=== PATIENT | female | born 1965 | race Caucasian/White ===

== ENCOUNTER 2021-05-16 11:33 | Emergency (ER) | payer OTHER ==
--- OUTSIDE RECORDS SUMMARY | 2021-05-16 11:37 | XMS REPORT | Continuity of Care Document ---
:1965 Author Organization [facility] t Address [address] [place] [address] Care Team Providers Name Role Phone Tiff HARDING Primary Care Physician Unavailable SYSTEM, NOT IN Attending Clinician Unavailable Heidi CORNEJO Attending Clinician Unavailable Janey Velasquez Attending Clinician Tiff HARDING Attending Clinician Unavailable Silvino WOODY Attending Clinician Unavailable Barbra GARCIA Attending Clinician SOHA Attending Clinician Unavailable SAMRA Attending Clinician Unavailable Payers Payer Name Policy Type Policy Effective Date Expiration Date Sour ce Number HUMANA CHOICE [id number] 2020 MEDICARE PPO 00:00:00 HUMANA [id number] 2018 [place] MEDICAREHUMANA 00:00:00 [facility] MEDIC[facility] PPO/PFFS/ERS [id number] 2018 -PresentPPO Problems This patient has no known problems. Allergies, Adverse Reactions, Alerts This patient has no known allergies or adverse reactions. Family History Family Member Diagnosis Comments Start Date Stop Date Source Natural father No Known Problems [facility] Natural mother Asthma [facility] thodist Natural mother Breast cancer [place] [facility] Natural mother Hypertension [place] [facility] Natural mother Rectal cancer [place] [facility] Social History Social Habit Start Date Stop Date Quantity Comments Source Tobacco use and 2019-11-20 2019-11-20 Never used Heath Nam ethodist exposure 00:00:00 00:00:00 Alcohol intake 2019-11-20 2019-11-20 Current drinker [place] [facility] 00:00:00 00:00:00 of alcohol (finding) Alcohol Comment 2019-11-20 2019-11-20 monthly Heath Nam [facility]ist 00:00:00 00:00:00 [birth year] [facility] Nam [facility] 00:00:00 00:00:00 Smoking Status Start Date Stop Date Source Never smoker Heath Betancourt t Medications Ordered Filled Start Stop Current Ordering Indication Dosage Frequency Signature Comments Components Source Medication Medication Date Date Medication? Clinician (SIG) Name Name cholecalcif 2020- Yes 58591M Q7D Take 1 [place] kiana, 5- 08-24 tablet [facility] vitamin D3, 00:00: 23:59 (50,000 st 1,250 mcg 00 :00 Units (50,000 total) by unit) mouth once tablet a week for 90 days. ferrous 2020- Yes 324mg Q.5D Take 324 [place] fumarate 5-26 07-25 mg by [facility] 324 mg (106 00:00: 23:[address] mg iron) 00 :00 (two) tablet times a day for 60 days. aspirin 81 2019-0 Yes 81mg Chew 81 [place] mg chewable 1-13 mg. [facility] tablet 12:00: st 39 hydrocortis 2019-0 Yes 10mg Q.5D Take 10 mg Joe one 1-13 by mouth 2 [facility] (CORTEF) 10 11:59: (two) st MG tablet 58 times a day. Patient takes 15mg daily DULoxetine 2019-0 Yes 60mg QD Take 60 mg [place] (CYMBALTA) 1-13 by mouth Metho di 60 MG 11:59: daily. st capsule 58 desmopressi 2020-0 Yes 1{spray Q.5D 1 spray Joe n (DDAVP 1-13 } into each Method i NASAL) 10 11:59: nostril 2 st mcg/spray 58 (two) (0.1 mL) times a solution day. liothyronin 2020-0 Yes 5ug QD Take 5 mcg Joe e (CYTOMEL) 1-13 by mouth Meth nadiya 5 MCG 11:59: daily. st tablet 58 levothyroxi 2020-0 Yes 88ug QD Take 88 [place] ne 1-13 mcg by [facility] (SYNTHROID) 11:59: mouth st 88 mcg 58 daily. tablet Vital Signs Vital Name Observation Time Observation Value Comments Source WEIGHT 2021-03-25 08:51:10 52.4 kg WEIGHT 2020-10-15 13:30:00 50.5 kg WEIGHT 2020-09-17 09:29:55 49.5 kg HEIGHT 2020-08-06 13:52:03 148 cm WEIGHT 2020-08-06 13:52:03 51.8 kg Body height 2021-02-17 09:17:00 149.9 cm Heath Cruz Body weight 2021-02-17 09:17:00 48.988 kg Heath Cruz BMI 2021-02-17 09:17:00 21.81 kg/m2 Heath Cruz Procedures Procedure Date / Time Performed Performing Clinician [facility] e COMPREHENSIVE METABOLIC 2021-03-27 10:29:00 Jim Hollingsworth PANEL LIPID PANEL 2021-03-27 10:29:00 Jim Hollingsworth TOTAL IRON BINDING 2021-03-27 10:29:00 Jim Hollingsworth M ethodist CAPACITY T4, FREE 2021-03-27 10:29:00 Jim Hollingsworth THYROID STIMULATING 2021-03-27 10:29:00 Jim Hollingsworth HORMONE HEMOGLOBIN A1C 2021-03-27 10:29:00 Jim Hollingsworth PARATHYROID HORMONE 2021-03-27 10:29:00 Jim Hollingsworth CBC WITH PLATELET AND 2021-03-27 10:29:00 Jim Hollingsworth n [facility] DIFFERENTIAL VITAMIN A LEVEL, PLASMA 2021-03-27 10:29:00 Jim Hollingsworth OR SERUM VITAMIN B12 LEVEL 2021-03-27 10:29:00 Jim Hollingsworth Me thodist VITAMIN D 25 HYDROXY 2021-03-27 10:29:00 Jim Hollingsworth LEVEL COPPER LEVEL, SERUM 2021-03-27 10:29:00 Jim Hollingsworth FOLATE LEVEL 2021-03-27 10:29:00 Jim Hollingsworth FERRITIN LEVEL 2021-03-27 10:29:00 Jim Hollingsworth VITAMIN B1 LEVEL, WHOLE 2021-03-27 10:29:00 Jim Hollingsworth BLOOD ZINC LEVEL, SERUM 2021-03-27 10:29:00 Jim Hollingsworth Me thodist T3 2021-03-27 10:29:00 Jim Hollingsworth Meth odist Plan of Care Planned Activity Planned Date Details Comments Source Future Scheduled 2021-06-08 INFLUENZA VACCINE [place] [facility] Test 00:00:00 [code = INFLUENZA VACCINE] Future Scheduled 2016 BREAST CANCER [facility] thodist Test 00:00:00 SCREENING [code = BREAST CANCER SCREENING] Future Scheduled 2016 COLONOSCOPY SCREENING [place] [facility] Test 00:00:00 [code = COLONOSCOPY SCREENING] Future Scheduled 2016 SHINGLES VACCINES (#1) [place] [facility] Test 00:00:00 [code = SHINGLES VACCINES (#1)] Future Scheduled 1987 Screening for [facility] thodist Test 00:00:00 malignant neoplasm of cervix (procedure) [code = 516774762] Future Scheduled 1984 Hepatitis C screening [place] [facility] Test 00:00:00 (procedure) [code = 182841539] Future Scheduled 1978 COVID-19 VACCINE (1) [place] [facility] [facility] Test 00:00:00 [code = COVID-19 VACCINE (1)] Future Scheduled 1976 DIABETES: RETINAL EYE [place] [facility] Test 00:00:00 EXAM [code = DIABETES: RETINAL EYE EXAM] Future Scheduled 1976 DIABETIC FOOT EXAM [place] [facility] Test 00:00:00 [code = DIABETIC FOOT EXAM] Future Scheduled 1976 URINE MICROALBUMIN [place] [facility] Test 00:00:00 [code = URINE MICROALBUMIN] Encounters Start End Encounter Admission Attending Care Care Encounter Source Date/Time Date/Time Type Type Clinicians Facility Department ID 2021-04-09 Outpatient SYSTEM, KEYLA RAMIRES [id number] 17:05:50 PROVIDER Dylon o n 2021-03-03 Outpatient SYSTEM, KEYLA RAMIRES [id number] 16:21:05 PROVIDER Dylon o n 2020-07-25 Outpatient SYSTEM, KEYLA RAMIRES [id number] 15:51:09 PROVIDER Dylon o n 2020-04-30 Outpatient SYSTEM, KEYLA RAMIRES [id number] 14:44:12 PROVIDER Dylon o n 2021-04-15 2021-04-15 Outpatient EL KEYLA CORNEJO MDA [id number] MD 14:06:17 14:06:17 ZEHRA Osborne o robe 2021-04-15 2021-04-15 Outpatient NEVIN CORNEJO, MDA MDA [id number] MD 09:08:26 09:08:26 ZEHRA Osborne o n 2021-03-25 2021-03-25 Outpatient ARIEL LOPEZ MDA MDA [id number] 07:00:00 23:59:00 Dylon o robe 2021-03-25 2021-03-25 Outpatient ARIEL LOPEZ MDA MDA [id number] 08:46:13 10:02:29 Dylon o robe 2021-02-17 2021-02-17 Outpatient BARBRA [facility] [id number] [place] 00:00:00 00:00:[address]IM [address] 2020-10-16 2020-10-16 Outpatient NEVIN CORNEJO, MDA MDA [id number] MD 17:26:20 17:27:25 ZEHRA nagel 2020-10-16 2020-10-16 Outpatient NEVIN CORNEJO, MDA MDA [id number] MD 10:22:18 10:22:18 ZEHRA Osborne o robe 2020-10-15 2020-10-15 Outpatient NEVIN HOYOS, MDA MDA [id number] 13:23:26 14:34:24 SAEED-AMY Kalen rso n 2020-10-15 2020-10-15 Outpatient NEVIN HOYOS, MDA MDA [id number] 10:53:32 10:53:32 SAEED-AMY Kalen rso n 2020-09-17 2020-09-17 Outpatient NEVIN HARDING ARIEL MDA MDA [id number] 08:15:00 23:59:00 Dylon o n 2020-09-17 2020-09-17 Outpatient NEVIN HARDING ARIEL MDA MDA [id number] 09:22:16 10:58:46 Dylon o n 2020-08-13 2020-08-13 Outpatient ARIEL HARDING MDA MDA [id number] 11:48:53 11:48:53 Dylon o n 2020-08-06 2020-08-06 Outpatient EL ILIKEELYCU, MDA MDA [id number] 13:48:14 15:51:50 KARY Dylon o n 2020-07-12 2020-07-12 Outpatient EL SOHA, [facility] [id number] 04:13:18 04:13:18 SRINATH nagel Results Test Description Test Time Test Comments Results Result Comments Source Vitamin A level, plasma or serum 2021-04-01 20:11:00 Test Item Value Reference Range Interpretation Comme nts Vitamin A (retinol) 29 See_Comment L Clin C hem Vol. 34.No.8. (test code = 2923-1) [id number] 1628. 1998Vitamin supplementation within 24 hours prior to blood draw may affect the accuracy of results. T his test was developed a nd its analytical perf ormance characteristics have been determined by [employer]. It has not been cleared or approved by theFDA. This assay has been validated pursuant to the CLIA reg ulations and is used for clinical purposes. [Aut omated message] The sy stem which generated this result transmitted ref erence range: 38 - 98 mcg/dL. The reference r juan francisco was not used to int erpret this result as normal/abnormal . KING (test code = KING) FASTING:YES FASTING: YES RAC (test code = RAC) Performing Organization Information: Site ID: [facility] Name: [facility] Address: [address] [place] [address] Director: Mick Beach M.D. Lab Interpretation (test Abnormal code = 36340-9) Heath CruzZinc level, [id number] 20:11:00 Test Item Value Reference Range Interpretation Comments Zinc (test 91 See_Comment This test was code = developed and i ts 5763-8) analytical perf ormance characteristics have been determined by [employer]. It has not been cl eared or approved by theFDA. This assay has been validated pursu ant to the CLIA regula tions and is used for clinical purpos es. [Automated mess age] The system whic h generated this result transmitted ref erence range: 60 - 130 mcg/dL. The ref erence range was not u sed to interpret this result as normal/abnor mal. KING (test FASTING:YES FASTING: code = KING) YES RAC (test Performing code = RAC) Organization Information: Site ID: [facility] Name: [facility] Address: [address] [place] [address] Director: Mick Joe MethodistVitamin B1 level, whole [id number] 20:11:00 Test Item Value Reference Range Interpretation Comments Vitamin B1, 172 nmol/L 78-185 Vitamin whole blood supplementation (test code = within 24 hours prior 72832-3) toblood draw ma y affect the accu racy of results. T his test was develo ped and its analyti ronnie performance characteristics have been determined by [employer]. It has not been cl eared or approved by theFDA. This as say has been valida harika pursuant to the CLIA regulations and is used for clinic al purposes. KING (test code FASTING:YES = KING) FASTING: YES RAC (test code Performing = RAC) Organization Information: Site ID: [facility] Name: [facility] Address: [address] [place] [address] Director: Mick Joe MethodistCopper level, [id number] 20:11:00 Test Item Value Reference Range Interpretation Comments Copper (test 141 See_Comment This test was code = developed and i ts 5631-7) analytical perf ormance characteristics have been determined by [employer] . It has not been cl eared or approved by theFDA. This assay has been validated pursu ant to the CLIA regula tions and is used for clinical purpos es. [Automated mess age] The system [employer] generated this result transmitted ref erence range: 70 - 175 mcg/dL. The ref erence range was not u sed to interpret this result as normal/abnor mal. KING (test FASTING:YES code = KING) FASTING: YES RAC (test Performing code = RAC) Organization Information: Site ID: [facility] Name: [facility] Address: [address] [place] [address] Director: Mick CruzTotal iron binding [id number] 20:11:00 Test Item Value Reference Range Interpretation Comments Iron level (test 109 See_Comment [Automated code = 2498-4) message] The system which generated this result transmit harika reference range : 45 - 160 mcg/dL . The reference range was not u sed to interpret th is result as normal/abnormal . Iron binding 336 See_Comment [Automated capacity (test message] The code = 2500-7) system which generated this result transmit harika reference range : 250 - 450 mcg/d L (calc). The reference range was not used to interpret this result as normal/abnormal . Iron saturation 32 See_Comment [Automated (test code = message] The 2502-3) system which generated this result transmit harika reference range : 16 - 45 % (calc ). The reference range was not u sed to interpret th is result as normal/abnormal . KING (test code = FASTING:YES KING) FASTING: YES RAC (test code = Performing RAC) Organization Information: Site ID: [facility] Name: [facility] Address: [address] [place] [address] Director: Levi Granados [place] [facility] metabolic [id number] 20:11:00 Test Item Value Reference Interpretation Comments Range Glucose (test code 86 mg/dL 65-99 Fasting = 2345-7) reference inter car BUN (test code = 11 mg/dL 06-01 3094-0) Creatinine (test 0.74 mg/dL 0.50-1.05 For patient s >49 code = 2160-0) years of age, the reference limit for Creatinine is approximately 1 3% higher for peopleidentifie d as -Casandra n. EGFR Non-Afr. 92 See_Comment [Automated me ssage] [place] (test code The syst em which = 2405) generated this result transmit harika reference range : > OR = 60 mL/min/1.73m2. The reference range was not used to interpret this result as normal/abnormal . EGFR 106 See_Comment [Automated mes patrice] [employer] [place] (test code The syst em which = 9914) generated this result transmit harika reference range : > OR = 60 mL/min/1.73m2. The reference range was not used to interpret this result as normal/abnormal . BUN/creatinine NOT APPLICABLE See_Comment [Automated message] ratio (test code = The syste m which 3097-3) generated this result transmit harika reference range : 6 - 22 (calc). The reference range was not used to interpret this result as normal/abnormal . Sodium (test code = 142 mmol/L 348-847 1615-2) Potassium (test 4.9 mmol/L 3.5-5.3 code = 2823-3) Chloride (test code 104 mmol/L 98-110 = 5-0) CO2 (test code = 30 mmol/L 20-32 2028-07) Calcium (test code 9.1 mg/dL 8.6-10.4 = 54787-9) Protein (test code 6.2 g/dL 6.1-8.1 = 2885-2) Albumin, S (test 3.5 g/dL 3.6-5.1 L code = 1751-7) Globulin, total 2.7 See_Comment [Automated message] (test code = [place] 76[address]-4) generated this result transmit harika reference range : 1.9 - 3.7 g/dL (ronnie c). The reference r juan francisco was not used to interpret this result as normal/abnormal . Albumin/globulin 1.3 See_Comment [Automated message] ratio (test code = The syste m which 1758-0) generated this result transmit harika reference range : 1.0 - 2.5 (calc). T he reference range was not used to interpret this result as normal/abnormal . Total bilirubin 0.6 mg/dL 0.2-1.2 (test code = 1974-2) Alkaline 117 U/L 37-153 phosphatase (test code = 6768-6) AST (test code = 22 U/L 10-35 1919-8) ALT (test code = 20 U/L - 1742-6) KING (test code = FASTING:YES KING) FASTING: YES RAC (test code = Performing RAC) Organization Information: Site ID: [facility] Name: [facility] Address: [address] [place] [address] Director: Levi Granados Lab Interpretation Abnormal (test code = 27102-9) [place] MethodistLipid [id number] 20:11:00 Test Item Value Reference Range Interpretation Comments Cholesterol, total 209 mg/dL <200 H (test code = 2092-3) HDL cholesterol 81 mg/dL See_Comment [Automated (test code = 2085-07) message ] The system which generated this result transmitted reference range : > OR = 50. The reference range was not used to interpret this result as normal/abnormal . Triglycerides (test 91 mg/dL <150 code = 2571-8) LDL cholesterol 109 mg/dL (calc) H Reference ra nge: calculated (test <100 Desira ble code = 55300-7) range <100 m g/dL for primary prevention; <7 0 mg/dL for patients with C HD or diabetic patients with > or = 2 CHD risk factors. LDL-C is now calculated using the Verna calculation, which is a validated novel method providin g better accuracy than the Friedewald equation in the estimation of LDL-C. Troy S S et al. ITZ. 2013;310(19): 4949-9201 (http://educati on .[employer] .com/faq/MET915 ) Cholesterol/HDL 2.6 See_Comment [Automated ratio (test code = message] The 9830-1) system which generated this result transmitted reference range : <5.0 (calc). Th e reference range was not used to interpret this result as normal/abnormal . Non-HDL cholesterol 128 See_Comment For ronak ents with (test code = diabetes plus 1 65783-7) major ASCVD ris k factor, treatin g to a non-HDL-C goal of <100 mg/dL (LDL-C of <70 mg/dL) is considered a therapeutic option. [Automated message] The system which generated this result transmitted reference range : <130 mg/dL (calc). The reference range was not used to interpret this result as normal/abnormal . KING (test code = FASTING:YES KING) FASTING: YES RAC (test code = Performing RAC) Organization Information: Site ID: [facility] Name: [facility] Address: [address] [place] [address] Director: Levi Granados Lab Interpretation Abnormal (test code = 90569-2) [place] [facility] B12 [id number] 20:11:00 Test Item Value Reference Range Interpretation Comments Vitamin B12 (test 654 pg/mL 200-1100 code = 2132-9) KING (test code = FASTING:YES FASTING: YES KING) RAC (test code = Performing Organization RAC) Information: Site ID: [facility] Name: [facility] Address: [address] [place] [address] Director: Levi Granados [place] MethodistFerritin [id number] 20:11:00 Test Item Value Reference Range Interpretation Comments Ferritin level (test 10 ng/mL 16-232 L code = 2276-4) KING (test code = KING) FASTING:YES FASTING: YES RAC (test code = RAC) Performing Organization Information: Site ID: [facility] Name: [facility] Address: [address] [place] [address] Director: Levi Granados Lab Interpretation (test Abnormal code = 68893-2) [place] MethodistFolate [id number] 20:11:00 Test Item Value Reference Range Interpretation Comments Folate (test 16.5 ng/mL code = 2284-8) Refer ence Range Lo w: <3.4 Borderline: 3.4-5.4 Normal: >5.4 KING (test code FASTING:YES FASTING: = KING) YES RAC (test code Performing = RAC) Organization Information: Site ID: [facility] Name: [facility] Address: [address] [place] [address] Director: Levi Granados [place] MethodistHemoglobin [id number] 20:11:00 Test Item Value Reference Range Interpretation Comments Hemoglobin A1C 4.7 See_Comment For the purpo se of (test code = screening for t he 4548-4) presence ofdiab etes: <5.7% Consistent with the absence of diabetes5.7-6.4 % Consistent with increased risk for diabetes (prediabetes)> or =6.5% Consiste nt with diabetes T his assay result is consistent with a decreased risko f diabetes. Curre ntly, no consensus ex ists regarding use ofhemoglobin A1 c for diagnosis of di abetes in children. According to [place] er[place] Diabetes Associ ation (ADA)guidelines , hemoglobin A1c <7.0% represents optimalcontrol in non- di abetic patients. Differentmetric s may apply to specif ic patient populat ions. Standards of Me dical Care in Diabetes(ADA). [Automated mess age] The system [employer] generated this result transmitted ref erence range: <5.7 % o f total Hgb. The reference range was not used to int erpret this result as normal/abnormal . KING (test code = FASTING:YES KING) FASTING: YES RAC (test code = Performing RAC) Organization Information: Site ID: [facility] Name: [facility] Address: [address] [place] [address] Director: Levi Granados [place] MethodistParathyroid [id number] 20:11:00 Test Item Value Reference Interpretation Comments Range PTH (test code = 132 pg/mL 14-64 H Interpreti ve Guide 2731-8) Intact PTH Calcium-------- -------Normal P arathyroid Normal NormalHypoparat hyroidism Low or Low Nor mal LowHyperparathy roidism Primary Normal or High H igh Secondary High No rmal or Low Tertiary High HighNon-Parathy roid Hypercalcemia Low or Low Normal H igh KING (test code = FASTING:YES KING) FASTING: YES RAC (test code = Performing RAC) Organization Information: Site ID: [facility] Name: [facility] Address: [address] [place] [address] Director: Dr. Levi Granados Lab Abnormal Interpretation (test code = 91289-5) [place] MethodistT4, [id number] 20:11:00 Test Item Value Reference Range Interpretation Comments T4, free (test code 1.1 ng/dL 0.8-1.8 = 3024-7) KING (test code = FASTING:YES FASTING: YES KING) RAC (test code = Performing Organization RAC) Information: Site ID: [facility]: [facility] Address: [address] [place] [address] Director: Levi Granados [place] MethodistThyroid stimulating [id number] 20:11:00 Test Item Value Reference Range Interpretation Comments TSH (test code = 0.03 mIU/L L 3016-3) Reference Range > or = 20 Years 0.40-4.50 Ranges First trimester 0.26-2.66 Second trimester 0.55-2.73 Third trimester 0.43-2.91 KING (test code = KING) FASTING:YES FASTING: YES RAC (test code = RAC) Performing Organization Information: Site ID: [facility] Name: [facility] Address: [address] [place] [address] Director: Levi Granados Lab Interpretation Abnormal (test code = 37971-4) [place] [id number] 20:11:00 Test Item Value Reference Range Interpretation Comments T3 (test code = 127 ng/dL 76-181 3053-6) KING (test code = FASTING:YES FASTING: YES KING) RAC (test code = Performing Organization RAC) Information: Site ID: [facility] Name: [facility] Address: [address] [place] [phone] Director: Levi Granados [place] MethodistCB with platelet and [id number] 20:11:00 Test Item Value Reference Range Interpretation Comments WBC (test code = 8.5 See_Comment [Automated 6690-2) message] The system which generated this result transmitted reference range : 3.8 - 10.8 Thousand/uL. Th e reference range was not used to interpret this result as normal/abnormal . RBC (test code = 4.40 See_Comment [Automated 279-8) message] The system which generated this result transmitted reference range : 3.80 - 5.10 Million/uL. The reference range was not used to interpret this result as normal/abnormal . HGB (test code = 12.7 g/dL 11.7-15.5 718-7) HCT (test code = 38.5 % 35.0-45.0 4544-3) MCV (test code = 87.5 fL 80.0-100.0 787-2) MCH (test code = 28.9 pg 27.0-33.0 785-6) MCHC (test code = 33.0 g/dL 32.0-36.0 786-4) RDW (test code = 12.2 % 11.0-15.0 788-0) Platelet count 237 See_Comment [Automated (test code = message] The 777-3) system which generated this result transmitted reference range : 140 - 400 Thousand/uL. Th e reference range was not used to interpret this result as normal/abnormal . MPV (test code = 11.4 fL 7.5-12.5 776-5) Neutrophils, 4046 See_Comment [Automated absolute (test message] The code = 751-8) system which generated this result transmitted reference range : 1,500 - 7,800 cells/uL. The reference range was not used to interpret this result as normal/abnormal . Lymphocytes, 3723 See_Comment [Automated absolute (test message] The code = 731-0) system which generated this result transmitted reference range : 850 - 3,900 cells/uL. The reference range was not used to interpret this result as normal/abnormal . Monocytes, 536 See_Comment [Automated absolute (test message] The code = 742-7) system which generated this result transmitted reference range : 200 - 950 cells/uL. The reference range was not used to interpret this result as normal/abnormal . Eosinophils, 128 See_Comment [Automated absolute (test message] The code = 711-2) system which generated this result transmitted reference range : 15 - 500 cells/uL. The reference range was not used to interpret this result as normal/abnormal . Basophils, 68 See_Comment [Automated absolute (test message] The code = 704-7) system which generated this result transmitted reference range : 0 - 200 cells/u L. The reference range was not used to interpr et this result as normal/abnormal . Neutrophils (test 47.6 % code = 770-8) Lymphocytes (test 43.8 % code = 736-9) Monocytes (test 6.3 % code = 5905-5) Eosinophils (test 1.5 % code = 713-8) Basophils + RC 0.8 % (test code = 706-2) KING (test code = FASTING:YES KING) FASTING: YES RAC (test code = Performing RAC) Organization Information: Site ID: RGA Name: [facility] Address: [address] [place] [id number] Director: Levi CruzVitamin D 25 hydroxy [id number] 20:11:00 Test Item Value Reference Range Interpretation Comments Vitamin D, 21 ng/mL 30-100 L Vitamin D Statu s 25-hydroxy (test 25-O H code = 1989-) Vitamin D: Deficiency: <2 0 ng/mLInsufficie nc y: 20 - 29 ng/mLOptimal: > o r = 30 ng/mL For 25-OH Vitamin D testing on patients on D2-supplementat io n and patients for whom quantitation of D2 and D3 fractions is required, the QuestAssureD(TM )2 5-OH VIT D, (D2,D3), LC/MS/ MS is recommended: order code 9288 8 (patients >2yrs).See Note 1 Note 1 For additional information, please refer to http://educatio [email or web address] Virtual Command/faq/KUY556 (This link is being provided for informational/e du cational purpos es only.) KING (test code = FASTING:YES KING) FASTING: YES RAC (test code = Performing RAC) Organization Information: Site ID: RGA Name: [facility] Address: [address] [place] [id number] Director: Levi Granados Lab Interpretation Abnormal (test code = 16891-8) Heath Cruz
[2021-05-16 12:24] LABS: Urine Blood 3+ (Negative); Urine Glucose Negative (Negative); Urine Protein 1+ (Negative)
[2021-05-16 12:49] LABS: Urine Bacteria NONE SEEN /HPF (<20); Urine RBC >50 /HPF (NONE SEEN)
[2021-05-16 13:02] LABS: Absolute Lymphocytes (CBC) 2.5 K/uL (0.7-4.9); Basophils % 0.9 % (0-1.3); Lymphocytes % 43.3 % (15.3-44.8); MPV 9.6 fL (7.6-11.3); RBC Red Blood Cell Count 4.16 M/uL (3.86-4.86)
[2021-05-16 13:15] LABS: BUN Blood Urea Nitrogen 10 mg/dL (7-18); Bicarbonate 30 mmol/L (21-32); Glucose Level 84 mg/dL (74-106); Potassium 3.5 mmol/L (3.5-5.1); Sodium Level 143 mmol/L (136-145)
--- NOTE | 2021-05-16 14:40 | RAD REPORT ---
EXAM DESCRIPTION: CT - Abdomen Pelvis W Contrast - 05/16/2021 1:54 pm CLINICAL HISTORY: Abdominal pain/hematuria COMPARISON: 2019 TECHNIQUE: Computed axial tomography of the abdomen pelvis was obtained. 100 cc Isovue-300 was admin istered intravenously. Oral contrast was not requested which limits evaluation of bowel. All CT scans are performed using dose optimization technique as appropriate and may include automated exposure control or mA/KV adjustment according to patient size. FINDINGS: The spleen has mildly increased size currently measuring 13 centimeters. It contains innum erable low density lesions. Cholecystectomy Gastric bypass The pancreas and adrenals unremarkable. Small left renal cysts. Small right renal cyst. Mild right hydronephrosis. 7 millimeter calculus right kidney. The wall of the right renal pelvis enh ances. 3.7 centimeter cyst right adnexae has increased in size. Previously it measured 2.7 centimeters. No s ignificant free fluid. No evidence of diverticulitis IMPRESSION: 7 millimeter calculus right renal pelvis with mild right hydronephrosis. Enhancement of the right renal pelvis may indicate a superimposed infection. Mild splenomegaly containing innumerable low-density lesions. These may indicate littoral cell angiom a,peliosis, or hemangiomas. Other considerations infection and metastases 3.7 centimeter right ovarian cystic mass has increased in size. Follow-up ultrasound in 3 months meredith mmended for re-evaluation
--- NOTE | 2021-05-16 14:58 | ER ---
Nurse's Notes [facility] Name: Kimberly Álvarez Age: 55 yrs Sex: Female : 1965 Arrival Date: 05/16/2021 Time: 11:36 Bed 17 Private MD: Diagnosis: Hematuria, unspecified;Nephrolithiasis Presentation: 05/16 11:54 Chief complaint: Patient states: Sent by PCP for blood and albumin in urine, also ph reports elevated WBC on lab work. Denies pain, fever, or urinary symptoms. Coronavirus screen: Client denies travel out of the [place] in the last 14 days. At this time, the client does not indicate any symptoms associated with coronavirus-19. Ebola Screen: No symptoms or risks identified at this time. Initial Sepsis Screen: Does the patient meet any 2 criteria? No. Patient's initial sepsis screen is negative. Does the patient have a suspected source of infection? Yes: Dysuria/Frequency/Urgency/UTI. Risk Assessment: Do you want to hurt yourself or someone else? Patient reports no desire to harm self or others. Onset of symptoms was May 16, 2021. 11:54 Method Of Arrival: Ambulatory ph 11:54 Acuity: FADUMO 3 ph Triage Assessment: 12:00 General: Appears in no apparent distress. uncomfortable, Behavior is cooperative, bp appropriate for age, anxious. Pain: Complains of pain in back. EENT: No deficits noted. Neuro: No deficits noted. Cardiovascular: No deficits noted. Respiratory: No deficits noted. GI: No signs and/or symptoms were reported involving the gastrointestinal system. : Reports burning with urination. Derm: No deficits noted. Musculoskeletal: No deficits noted. Historical: - PMHx: 11:57 pituitary tumor; ph - Immunization history:: Adult Immunizations up to date. - Social history:: Smoking status: Patient denies any tobacco usage or history of. Screenin:00 Abuse screen: Denies threats or abuse. Denies injuries from another. Nutritional bp screening: No deficits noted. Tuberculosis screening: No symptoms or risk factors identified. Fall Risk None identified. Assessment: 12:00 General: SEE TRIAGE NOTE. bp 14:00 Reassessment: No changes from previously documented assessment. Patient and/or family bp updated on plan of care and expected duration. Pain level reassessed. Patient is alert, oriented x 3, equal unlabored respirations, skin warm/dry/pink. 15:52 Reassessment: PT D/C HOME AMBULATORY, DX WITH HEMATURIA AND NEPHROLITHIASIS. bp Vital Signs: 11:54 BP 135 / 81; Pulse 75; Resp 18; Temp 98.4(O); Pulse Ox 100% on R/A; Weight 54.43 kg; ph Height 4 ft. 11 in. (149.86 cm); 12:00 BP 141 / 82; Pulse 66; Resp 17; Pulse Ox 100% ; bp 14:00 BP 137 / 79; Pulse 70; Resp 18; Pulse Ox 100% ; bp 15:54 BP 145 / 83; Pulse 75; Resp 18; Temp 98.1; Pulse Ox 100% ; bp 11:54 Body Mass Index 24.24 (54.43 kg, 149.86 cm) ph ED Course: 11:36 Patient arrived in ED. bp1 11:55 Dewayne Ramirez PA is PHCP. jr8 11:55 Oseas Owusu MD is Attending Physician. jr8 11:57 Triage completed. ph 11:57 Arm band placed on Patient placed in an exam room, on a stretcher. ph 12:00 Patient has correct armband on for positive identification. Bed in low position. Call bp light in reach. Side rails up X2. 12:20 Benito Hightower, RUDDY is Primary Nurse. bp 12:39 Inserted saline lock: 20 gauge in right antecubital area, using aseptic technique. bp Blood collected. 13:53 CT Abd/Pelvis - IV Contrast Only In Process Unspecified. EDMS 14:56 Roberto Chu MD is Referral Physician. jr8 15:54 No provider procedures requiring assistance completed. IV discontinued, intact, bp bleeding controlled, No redness/swelling at site. Pressure dressing applied. Administered Medications: No medications were administered Outcome: 14:57 Discharge ordered by . jr8 15:54 Discharged to home ambulatory, with family. bp 15:54 Condition: stable 15:54 Discharge instructions given to patient, Instructed on discharge instructions, follow up and referral plans. Demonstrated understanding of instructions, follow-up care. 15:59 Patient left the ED. bp Signatures: Dispatcher [employer] EDMS Dewayne Ramirez PA PA jr8 Kimmie Garcia RN RN ph Benito Hightower RN RN bp Zaira Miller bp1
--- NOTE | 2021-05-16 14:58 | EDPHYS ---
Physician Documentation [facility] Name: Kimberly Álvarez Age: 55 yrs Sex: Female : 1965 Arrival Date: 05/16/2021 Time: 11:36 Bed 17 Private MD: ED Physician Oseas Owusu HPI: 05/16 13:26 This 55 yrs old Female presents to ER via Ambulatory with complaints of jr8 Abnormal Lab Results, Blood in Urine. 13:26 Patient stated that through her yearly insurance physical was found to have blood and jr8 protein in urine. This was confirmed at PCP office. Was sent here for further evaluation. Patient currently without pain or other symptoms . Severity of symptoms: At their worst the symptoms were very mild. The patient has not experienced similar symptoms in the past. The patient has been recently seen by a physician:. Historical: - PMHx: 11:57 pituitary tumor; ph - Immunization history:: Adult Immunizations up to date. - Social history:: Smoking status: Patient denies any tobacco usage or history of. ROS: 13:26 Constitutional: Negative for fever, chills, and weight loss, Cardiovascular: Negative jr8 for chest pain, palpitations, and edema, Respiratory: Negative for shortness of breath, cough, wheezing, and pleuritic chest pain, Abdomen/GI: Negative for abdominal pain, nausea, vomiting, diarrhea, and constipation, Back: Negative for injury and pain, : Negative for injury, bleeding, discharge, and swelling. 13:26 All other systems are negative. Exam: 13:26 Constitutional: This is a well developed, well nourished patient who is awake, alert, jr8 and in no acute distress. Cardiovascular: Regular rate and rhythm with a normal S1 and S2. No gallops, murmurs, or rubs. Normal PMI, no JVD. No pulse deficits. Respiratory: Lungs have equal breath sounds bilaterally, clear to auscultation and percussion. No rales, rhonchi or wheezes noted. No increased work of breathing, no retractions or nasal flaring. Abdomen/GI: Soft, non-tender, with normal bowel sounds. No distension or tympany. No guarding or rebound. No evidence of tenderness throughout. Back: No spinal tenderness. No costovertebral tenderness. Full range of motion. Skin: Warm, dry with normal turgor. Normal color with no rashes, no lesions, and no evidence of cellulitis. MS/ Extremity: Pulses equal, no cyanosis. Neurovascular intact. Full, normal range of motion. Neuro: Awake and alert, GCS 15, oriented to person, place, time, and situation. Cranial nerves II-XII grossly intact. Motor strength 5/5 in all extremities. Sensory grossly intact. Vital Signs: 11:54 BP 135 / 81; Pulse 75; Resp 18; Temp 98.4(O); Pulse Ox 100% on R/A; Weight 54.43 kg; ph Height 4 ft. 11 in. (149.86 cm); 12:00 BP 141 / 82; Pulse 66; Resp 17; Pulse Ox 100% ; bp 14:00 BP 137 / 79; Pulse 70; Resp 18; Pulse Ox 100% ; bp 15:54 BP 145 / 83; Pulse 75; Resp 18; Temp 98.1; Pulse Ox 100% ; bp 11:54 Body Mass Index 24.24 (54.43 kg, 149.86 cm) ph MDM: 12:08 Patient medically screened. jr8 14:54 Data reviewed: vital signs, nurses notes, lab test result(s), radiologic studies, CT jr8 scan. Data interpreted: Pulse oximetry: on room air is 100 %. Interpretation: normal. Counseling: I had a detailed discussion with the patient and/or guardian regarding: the historical points, exam findings, and any diagnostic results supporting the discharge/admit diagnosis, lab results, radiology results, the need for outpatient follow up, a urologist, to return to the emergency department if symptoms worsen or persist or if there are any questions or concerns that arise at home. ED course: Discussed with patient the findings of the CT. That the renal stone is most likely cause of the WBC and RBCs in urine. Because it has not dropped into the UPJ and that she is in no pain, I will have her f/u with urology which she is good with. Also talked to her about her spleen and ovarian mass. They are being followed by her other physicians and appear stable at this time. 05/16 12:11 Order name: Urine Microscopic Only; Complete Time: 13:14 jr8 05/16 12:11 Order name: CBC with Diff; Complete Time: 13:14 jr8 05/16 12:11 Order name: Basic Metabolic Panel; Complete Time: 13:17 jr8 05/16 12:24 Order name: Urine Dipstick-Ancillary; Complete Time: 13:14 [facility] 05/16 12:51 Order name: Urine Culture [facility] 05/16 13:21 Order name: CT Abd/Pelvis - IV Contrast Only; Complete Time: 14:44 jr8 05/16 12:11 Order name: Urine Dipstick-Ancillary (obtain specimen); Complete Time: 12:41 8 05/16 12:11 Order name: IV; Complete Time: 12:39 jr8 Administered Medications: No medications were administered Disposition: 16:32 Co-signature as Attending Physician, Oseas Owusu MD I agree with the assessment and kdr plan of care. Disposition Summary: 05/16/21 14:57 Discharge Ordered Location: Home [facility] Problem: new jr8 Symptoms: have improved jr8 Condition: Stable jr8 Diagnosis - Hematuria, unspecified jr8 - Nephrolithiasis jr8 Followup: jr8 - With: Roberto Chu MD - When: 2 - 3 days - Reason: Recheck today's complaints, Continuance of care, Re-evaluation by your physician Discharge Instructions: - Discharge Summary Sheet jr8 - Hematuria, Adult jr8 - Kidney Stones jr8 Forms: - Medication Reconciliation Form jr8 - Thank You Letter jr8 - Antibiotic Education jr8 - Prescription Opioid Use jr8 Signatures: Dispatcher [employer] [facility] Oseas Owusu MD MD [facility] Dewayne Ramirez PA PA jr8 Kimmie Garcia RN RN Benito Doherty RN RN bp
[2021-05-16 16:45] VITALS: O2SAT 100
[2021-05-16 16:50] VITALS: BP 145/83; TEMP 98.1
== END 2021-05-16 15:59 | disposition home or self-care (01) ==
LOC: ER 11:33
DX: N20.0 Calculus of kidney (principal)
CPT/HCPCS: 87088; 85025; 87086; 80048; 36415; 74177; 99284; Q9967; 81003; 81015

== ENCOUNTER 2021-09-16 09:04 | Day surgery (SDC) | payer OTHER ==
[2021-09-15 16:03] LABS: Urine Appearance CLOUDY (Clear); Urine Bilirubin NEGATIVE (Negative); Urine Blood 3+ (Negative); Urine Color DK YELLOW (Yellow); Urine Glucose NEGATIVE (Negative); Urine Protein 2+ (Negative); Urine Specific Gravity 1.025 (1.005-1.030); Urine Urobilinogen 0.2 mg/dL (0.2-1.0)
[2021-09-15 16:08] LABS: Urine Microscopic Reflex ORDER UMIC
[2021-09-15 16:15] LABS: Absolute Lymphocytes (CBC) 1.9 K/uL (0.7-4.9); Basophils % 0.7 % (0-1.3); Hematocrit 37.8 % (36.0-45.0); Lymphocytes % 26.4 % (15.3-44.8); MPV 9.3 fL (7.6-11.3); RBC Red Blood Cell Count 4.36 M/uL (3.86-4.86)
[2021-09-15 16:17] LABS: BUN Blood Urea Nitrogen 9 mg/dL (7-18); Bicarbonate 30 mmol/L (21-32); Glucose Level 96 mg/dL (74-106); Potassium 3.6 mmol/L (3.5-5.1); Sodium Level 142 mmol/L (136-145)
[2021-09-15 16:18] LABS: Protime INR 1.04
[2021-09-15 16:40] LABS: Urine Bacteria <20 /HPF (<20); Urine RBC >50 /HPF (NONE SEEN)
[2021-09-15 16:41] LABS: Urine Mucus HEAVY /HPF (NONE SEEN)
[2021-09-16] MEDS ORDERED: CEFAZOLIN/NS 1gm 1 GM/50 ML BAG ONE (09:26)
[2021-09-16] MEDS: Ringers Lactate 1,000 ML IV ONE ×2 (09:56→10:05)
[2021-09-16] MEDS ORDERED: MIDAZOLAM HCL 2 MG/2 ML INJ ONE (10:21)
[2021-09-16] MEDS ORDERED: propofoL 200 MG/20 ML VIAL IV ONE (10:21)
[2021-09-16] MEDS ORDERED: FENTANYL CITR 100 MCG/2 ML ONE (10:21)
[2021-09-16] MEDS ORDERED: ONDANSETRON 4 MG/2 ML VIAL ONE (10:22)
[2021-09-16] MEDS ORDERED: LIDOCAINE 2% MPF 5 ML VIAL ONE (10:22)
[2021-09-16] MEDS ORDERED: GLYCOPYRROLATE 0.2 MG/ML SYR ONE (11:26)
[2021-09-16] MEDS ORDERED: KETOROLAC 30 MG/ML INJ ONE (12:27)
[2021-09-16] MEDS ORDERED: PHENAZOPYRIDINE 100MG TAB PO ONE (12:36)
[2021-09-16] MEDS ORDERED: CODEINE 30MG/APAP 300MG TAB PO PRN (12:36)
[2021-09-16 13:59] VITALS: BP 133/79; TEMP 98.3; O2SAT 100
--- NOTE | 2021-09-16 23:27 | OP ---
Date of Procedure: 09/16/2021 Surgeon: GRACIE RM Preoperative Diagnoses: 1.Microscopic hematuria. 2.Right nephrolithiasis approximately 8 mm. Postoperative Diagnoses: 1.Microscopic hematuria. 2.Right nephrolithiasis approximately 8 mm. 3.Urethral/bladder neck lesion. Principal Procedures: 1.Cystoscopy with bladder biopsies. 2.Urethral Low catheter placement. 3.Right extracorporeal shock wave lithotripsy/extracorporeal shock wave lithotripsy. Indications For Procedure: Mrs. Álvarez presented to the Urology Clinic with microscopic hematuria a nd a CT revealing the presence of a 7 mm nonobstructing right renal calculus. She subsequently under went evaluation with a KUB, which assessed the stone size at 9.3 mm. Because she also has a history of smoking, she was recommended for cystoscopy and since we were going to treat the large size stone given its risk of obstruction with passage, she elected to have the cystoscopy done at the same time operatively. Procedure In Detail: The patient was consented in the preoperative holding area before being transfe rred to the operative suite where general anesthesia was induced. She was placed in the lithotomy po sition, padded and secured to the table appropriately. Pneumoboots were provided for DVT prophylaxis and she was given Ancef for IV antimicrobial prophylaxis. Her genitalia were prepped using Hibiclen s and draped in standard fashion. The case was begun using a 22-Vincentian rigid cystoscope to traverse the urethra into the bladder with ease. The bladder was then surveyed in its entirety and there were no papillary mucosal lesions, foreign bodies, or stones noted throughout the bladder. Within the pr oximal urethra near the bladder neck, there were small frondular/circular lesions that were relativel y benign-appearing and commonly seen in females at that location, which were likely the source of the bleeding noted actively cystoscopically. As a result, to confirm the absence of any low-grade malig twan, I utilized cold cup biopsy forceps to grasp the lesions and deliver them for pathologic analys is. There was not a lot of significant bleeding from the biopsies, so I did not fulgurate especially since this was within the proximal bladder neck and the desire to avoid stricture disease causing ob struction to voiding. As a result, once I then resurveyed the bladder using a flexible cystoscope to retroflexion view the bladder neck, and no additional lesions were seen at that time, I then placed a 20-Vincentian urethral Low catheter to tamponade the bleeding with 15 cc of sterile water in the ball oon. The patient was then transferred into the shock wave lithotripsy table where a water bath was p laced beneath her back and the right renal calculus was observed and targeted for shockwave lithotrip sy. Right ESWL. Starting with a power of 4.0 and 1 hertz and slowly increasing the power over the course of approxima tely 500 shocks to 7.0, we began to fragment the calculus. The rate was eventually increased to 1.5 hertz and fragmentation continued. By 1500 shocks, there was evidence of dissolution meant of the st one, and so an additional 1000 shocks was provided in order to completely fragment the visible compon ents of the stone. After 2508 shocks had been delivered, no significant residual stone was noted, so the procedure was concluded. The patient was then awakened from general anesthesia, transferred to a stretcher, and then transferred to the recovery room in good condition. Complications: None. Discharge Disposition: She should follow up in the Urology Clinic within the next couple of weeks to discuss the results of the biopsy pathology. At that time, a KUB may be obtained to assess for reso lution of the stone burden with an ultrasound potentially being of equal value given the faint appearance of the calculus fluoroscopically. MANINDER/ORI Voice ID: [id number] Report ID: [id number]
--- NOTE | 2021-09-17 11:26 | EKG ---
Test Date: 2021-09-15 Test Time: 15:39:20 Medical Records Analyst: CHRISTIAN MEASUREMENT RESULTS: Intervals: Rate: 91 IA: 130 QRSD: 92 QT: 384 QTc: 472 [place]: P: 69 IA: 130 QRS: 62 T: 59 INTERPRETIVE STATEMENTS: Normal sinus rhythm Normal ECG Compared to ECG 12/21/2012 10:24:09 Prolonged QT interval no longer present Electronically Signed On 09-17-21 11:20:55 FIELD TRAINING AGENT by Gareth Aden
== END 2021-09-16 14:41 | disposition home or self-care (01) ==
LOC: OR 09:04
PROVIDERS: ATTEND Urology
PROC: 0T9B80Z Drainage of Bladder with Drainage Device, Via Natural or Artificial Opening Endoscopic (ICD-10-PCS; 2021-09-16)
PROC: 0TBB8ZX Excision of Bladder, Via Natural or Artificial Opening Endoscopic, Diagnostic (ICD-10-PCS; principal; 2021-09-16 11:30)
PROC: 0TF38ZZ Fragmentation in Right Kidney Pelvis, Via Natural or Artificial Opening Endoscopic (ICD-10-PCS; 2021-09-16 11:30)
DX: N20.0 Calculus of kidney (principal); R31.29 Other microscopic hematuria; Z20.822 Contact with and (suspected) exposure to COVID-19
CPT/HCPCS: 93005; 87088; 85025; 87086; 80048; 36415; 85610; 88305; 85730; 50590; 52204; 51702; U0003; J2704; J2250; J3010; J0690; J7120; J2405; 81003; 81015

== ENCOUNTER 2021-10-30 11:35 | Emergency (ER) | payer OTHER ==
--- OUTSIDE RECORDS SUMMARY | 2021-10-30 11:39 | XMS REPORT | Continuity of Care Document ---
:1965 Author Organization [facility] t Address [address] [place] [address] Care Team Providers Name Role Phone [phone] Primary Care Physician Unavailable SYSTEM, NOT IN Attending Clinician Unavailable BERTHA Attending Clinician Unavailable Heidi CORNEJO Attending Clinician Unavailable Tiff HARDING Attending Clinician Unavailable BARBRA Attending Clinician Unavailable SOHA Attending Clinician Unavailable SAMRA Attending Clinician Unavailable Payers Payer Name Policy Type Policy Number Effective Date Expiration Date S ource [employer] CHOICE [id number] 2020 MEDICARE PPO 00:00:00 Problems This patient has no known problems. Allergies, Adverse Reactions, Alerts This patient has no known allergies or adverse reactions. Medications This patient has no known medications. Vital Signs Vital Name Observation Time Observation Value Comments Source WEIGHT 2021-03-25 08:51:10 52.4 kg WEIGHT 2020-10-15 13:30:00 50.5 kg WEIGHT 2020-09-17 09:29:55 49.5 kg HEIGHT 2020-08-06 13:52:03 148 cm WEIGHT 2020-08-06 13:52:03 51.8 kg Procedures This patient has no known procedures. Encounters Start End Encounter Admission Attending Care Care Encounter Source Date/Time Date/Time Type Type Clinicians Facility Department ID 2021-10-14 Outpatient SYSTEMKEYLA MDA [id number] 13:08:41 PROVIDER Dylon o n 2021-04-09 Outpatient SYSTEM, MDA MDA [id number] 17:05:50 PROVIDER Dylon nagel 2021-03-03 Outpatient SYSTEM, MDA MDA [id number] 16:21:05 PROVIDER Dylon nagel 2020-07-25 Outpatient SYSTEM, MDA MDA [id number] 15:51:09 PROVIDER Dylon nagel 2020-04-30 Outpatient SYSTEM, MDA MDA [id number] 14:44:12 PROVIDER Dylon nagel 2021-10-23 2021-10-23 ambulatory [facility] [id number] 2021-09-29 2021-09-29 ambulatory [facility] [id number] [facility] 2021-08-27 2021-08-27 Outpatient [facility] [id number] [facility] 2021-07-25 2021-07-25 Outpatient [facility] [id number] [facility] 2021-07-07 2021-07-07 Outpatient [facility] [id number] [facility] 2021-06-30 2021-06-30 Outpatient [facility] [id number] [place] 00:00:00 00:00:00 NEGRA sims 2021-05-22 2021-05-22 Outpatient [facility] [id number] [facility] 2021-04-15 2021-04-15 Outpatient EL REGISRIN, MDA MDA [id number] 14:06:17 14:06:17 ZEHRA nagel 2021-04-15 2021-04-15 Outpatient NEVIN OSTRIN, MDA MDA [id number] 09:08:26 09:08:26 ZEHRA nagel 2021-03-25 2021-03-25 Outpatient NEVIN ARIEL HARDING MDA MDA [id number] 07:00:00 23:59:00 Dylon o n 2021-03-25 2021-03-25 Outpatient ARIEL LOPEZ MDA MDA [id number] 08:46:13 10:02:29 Dylon o n 2021-02-17 2021-02-17 Outpatient BARBRA [facility] [id number] [place] 00:00:00 00:00:00 CHARLY [address] 2020-10-16 2020-10-16 Outpatient EL OSTRIN, MDA MDA [id number] 17:26:20 17:27:25 ZEHRA Dylon o n 2020-10-16 2020-10-16 Outpatient EL OSTRIN, MDA MDA [id number] MD 10:22:18 10:22:18 ZEHRA Dylon o n 2020-10-15 2020-10-15 Outpatient EL WEATHERS, MDA MDA [id number] 13:23:26 14:34:24 SHIAO-AMY Kalen rso n 2020-10-15 2020-10-15 Outpatient EL WEATHERS, MDA MDA [id number] 10:53:32 10:53:32 SHIAO-AMY Kalen rso n 2020-09-17 2020-09-17 Outpatient ARIEL LOPEZ MDA MDA [id number] 08:15:00 23:59:00 Dylon o n 2020-09-17 2020-09-17 Outpatient ARIEL LOPEZ MDA MDA [id number] 09:22:16 10:58:46 Dylon o n 2020-08-13 2020-08-13 Outpatient ARIEL HARDING MDA MDA [id number] 11:48:53 11:48:53 Dylon o n 2020-08-06 2020-08-06 Outpatient EL ILIESCU, MDA MDA [id number] 13:48:14 15:51:50 KARY Dylon o n 2020-07-12 2020-07-12 Outpatient EL WEATHERS, MDA MDA [id number] 04:13:18 04:13:18 SHIAO-AMY Kalen rso n Results This patient has no known results.
[2021-10-30 14:36] LABS: SARS-COV-2 RT PCR POSITIVE (NEGATIVE)
--- NOTE | 2021-10-30 14:42 | EDPHYS ---
Physician Documentation [facility] Name: Kimberly Álvarez Age: 55 yrs Sex: Female : 1965 Arrival Date: 10/30/2021 Time: 12:08 Bed 11 Private MD: ED Physician Oseas Owusu HPI: 10/30 15:04 This 55 yrs old Female presents to ER via Ambulatory with complaints of Flu Symptoms. kb 15:04 The patient or guardian reports flu symptoms, myalgias. Onset: The symptoms/episode kb began/occurred yesterday. Severity of symptoms: At their worst the symptoms were mild, in the emergency department the symptoms are unchanged. Modifying factors: The symptoms are alleviated by nothing, the symptoms are aggravated by nothing. Associated signs and symptoms: The patient has no apparent associated signs or symptoms. The patient has not experienced similar symptoms in the past. The patient has not recently seen a physician. Pt reports headache, bodyaches and fatigue that started yesterday. Daughter tested positive for covid. [employer] SUPPORT SPECIALIST: 12:55 LMP N/A - Post-menopause 7 Historical: - Allergies: 12:55 No Known Allergies; jl7 - Home Meds: 12:55 desmopressin oral [Active]; jl7 - PMHx: 12:55 pituitary tumor; jl7 - Immunization history:: Adult Immunizations up to date, Client reports receiving the 2nd dose of the Covid vaccine, Ofidium. - Social history:: Smoking status: Patient denies any tobacco usage or history of. ROS: 15:04 Respiratory: Negative for shortness of breath, cough, wheezing, and pleuritic chest kb pain. 15:04 Constitutional: Positive for body aches, fatigue. 15:04 Neuro: Positive for headache. 15:04 All other systems are negative. Exam: 15:04 Constitutional: This is a well developed, well nourished patient who is awake, alert, kb and in no acute distress. Head/Face: Normocephalic, atraumatic. ENT: Moist Mucous membranes Respiratory: Respirations even and unlabored. No increased work of breathing. Talking in full sentences Skin: Warm, dry with normal turgor. Normal color. MS/ Extremity: Pulses equal, no cyanosis. Neurovascular intact. Full, normal range of motion. Neuro: Awake and alert, GCS 15, oriented to person, place, time, and situation. Moves all extremities. Normal gait. Psych: Awake, alert, with orientation to person, place and time. Behavior, mood, and affect are within normal limits. Vital Signs: 12:54 BP 132 / 90; Pulse 83; Resp 17; Temp 98.7; Pulse Ox 99% ; Weight 58.97 kg; Height 4 ft. jl7 11 in. (149.86 cm); Pain 5/10; 12:54 Body Mass Index 26.26 (58.97 kg, 149.86 cm) jl7 MDM: 14:41 Patient medically screened. kb 14:55 Data reviewed: vital signs, nurses notes. Data interpreted: Pulse oximetry: on room air kb is 99 %. Interpretation: normal. 15:04 Counseling: I had a detailed discussion with the patient and/or guardian regarding: the kb historical points, exam findings, and any diagnostic results supporting the discharge/admit diagnosis, radiology results, the need for outpatient follow up, a family practitioner, to return to the emergency department if symptoms worsen or persist or if there are any questions or concerns that arise at home. 10/30 13:52 Order name: COVID-19/FLU A+B; Complete Time: 14:41 EDMS Administered Medications: No medications were administered Disposition: 17:05 Co-signature as Attending Physician, Oseas Owusu MD I agree with the assessment and kdr plan of care. Disposition Summary: 10/30/21 14:41 Discharge Ordered Location: Home kb Condition: Stable kb Diagnosis - Coronavirus infection, unspecified kb Followup: kb - With: Emergency Department - When: As needed - Reason: Worsening of condition Followup: kb - With: Private Physician - When: 2 - 3 days - Reason: Recheck today's complaints, Continuance of care, Re-evaluation by your physician Discharge Instructions: - Discharge Summary Sheet kb - COVID-19 kb - COVID-19 Frequently Asked Questions kb Forms: - Medication Reconciliation Form kb - Thank You Letter kb - Antibiotic Education kb - Prescription Opioid Use kb Signatures: Dispatcher [employer] EDMS Astrid Peters FNP-C FNP-Ckb Rittger, Kevin, MD MD kdr Leal, Jahala, RN RN jl7 Corrections: (The following items were deleted from the chart) 13:51 12:52 Influenza Screen (A \T\ B)+BA.NOE.MARCE ordered. EDMS EDMS 13:52 12:52 CORONAVIRUS+.DESTINI ordered. EDMS EDMS
--- NOTE | 2021-10-30 14:42 | ER ---
Nurse's Notes [facility] Name: Kimberly Álvarez Age: 55 yrs Sex: Female : 1965 Arrival Date: 10/30/2021 Time: 12:08 Bed 11 Private MD: Diagnosis: Coronavirus infection, unspecified Presentation: 10/30 12:54 Chief complaint: Patient states: Body aches started yesterday, sister tested positive jl7 for COVID. Coronavirus screen: Vaccine status: Patient reports receiving the 2nd dose of the covid vaccine. Pfizer. Ebola Screen: No symptoms or risks identified at this time. Initial Sepsis Screen: Does the patient meet any 2 criteria? No. Patient's initial sepsis screen is negative. Does the patient have a suspected source of infection? No. Patient's initial sepsis screen is negative. Risk Assessment: Do you want to hurt yourself or someone else? Patient reports no desire to harm self or others. Onset of symptoms was October 29, 2021. Care prior to arrival: None. 12:54 Method Of Arrival: Ambulatory jl7 12:54 Acuity: FADUMO 4 jl7 Triage Assessment: 12:55 General: Appears in no apparent distress. uncomfortable, Behavior is calm, cooperative, jl7 appropriate for age. Pain: Complains of pain in VELARDE Pain currently is 5 out of 10 on a pain scale. STONE HAND: 12:55 LMP N/A - Post-menopause jl7 Historical: - Allergies: 12:55 No Known Allergies; jl7 - Home Meds: 12:55 desmopressin oral [Active]; jl7 - PMHx: 12:55 pituitary tumor; jl7 - Immunization history:: Adult Immunizations up to date, Client reports receiving the 2nd dose of the Covid vaccine, Pfizer. - Social history:: Smoking status: Patient denies any tobacco usage or history of. Screenin:39 Abuse screen: Denies threats or abuse. Denies injuries from another. Nutritional jl7 screening: No deficits noted. Tuberculosis screening: No symptoms or risk factors identified. Fall Risk None identified. Assessment: 14:39 Reassessment: JOSE MIGUEL Resendiz at bedside assessing pt. jl7 Vital Signs: 12:54 BP 132 / 90; Pulse 83; Resp 17; Temp 98.7; Pulse Ox 99% ; Weight 58.97 kg; Height 4 ft. jl7 11 in. (149.86 cm); Pain 5/10; 12:54 Body Mass Index 26.26 (58.97 kg, 149.86 cm) jl7 ED Course: 12:08 Patient arrived in ED. mr 12:55 Triage completed. jl7 12:55 Arm band placed on right wrist. Patient placed in waiting room, Patient notified of jl7 wait time. 12:56 COVID swab sent to lab. Flu and/or RSV swab sent to lab. jl7 14:35 sAtrid Peters FNP-C [facility]. kb 14:35 Oseas Owusu MD is Attending Physician. kb 14:39 Aline Porter, RUDDY is Primary Nurse. jl7 14:39 Patient has correct armband on for positive identification. jl7 14:39 No provider procedures requiring assistance completed. Patient did not have IV access jl7 during this emergency room visit. Administered Medications: No medications were administered Outcome: 14:41 Discharge ordered by MD. kb 14:44 Discharged to home ambulatory. jl7 14:44 Condition: stable 14:44 Discharge instructions given to patient, Instructed on discharge instructions, follow up and referral plans. Demonstrated understanding of instructions, follow-up care. 14:44 Patient left the ED. jl7 Signatures: Astrid Peters FNP-C FNP-Mila YouaAngelika mr Aline Porter, RN RN jl7
[2021-10-30 15:09] VITALS: BP 132/90; TEMP 98.7; O2SAT 99
== END 2021-10-30 14:44 | disposition home or self-care (01) ==
LOC: ER 11:35
DX: U07.1 COVID-19 (principal)
CPT/HCPCS: 0240U; 99283